=== PATIENT | female | born 2000 | race Caucasian/White ===

== ENCOUNTER 2025-05-09 20:52 | Emergency (ER) | payer OTHER ==
[~2025-05-09] VITALS: Ht 147.3 cm; Wt 55.5 kg
[2025-05-09 21:07] VITALS: BP 112/73; PULSE 82; RESP 16; TEMP 97.9; O2SAT 98
[2025-05-09] MEDS: AMOX TR/POT CLAV 875 MG/125 MG TABLET PO ONE (22:31)
[2025-05-09] MEDS: IBUPROFEN 600 MG TABLET PO ONE (22:32)
[2025-05-09] MEDS ORDERED: AMOX-457 PO (23:37)
[2025-05-09] MEDS ORDERED: IBUP-1493 PO (23:37)
== END 2025-05-10 | disposition home or self-care (01) ==
LOC: EDBD 20:54 → EMS 20:54
DX: S00.03XA Contusion of scalp, initial encounter (principal); S60.311A Abrasion of right thumb, initial encounter; S19.9XXA Unspecified injury of neck, initial encounter; F12.90 Cannabis use, unspecified, uncomplicated; Z88.8 Allergy status to other drugs, medicaments and biological substances; Y04.1XXA Assault by human bite, initial encounter; Y93.89 Activity, other specified; Y92.89 Other specified places as the place of occurrence of the external cause; Y99.0 Civilian activity done for income or pay
CPT/HCPCS: 70450; 72125; 84703; 99284

== ENCOUNTER 2025-05-15 16:12 | Emergency (ER) | payer OTHER ==
[~2025-05-15] VITALS: Ht 147.3 cm; Wt 55.0 kg
[~2025-05-15 16:12] MED LIST: AMOX-457 PO; IBUP-1493 PO
[2025-05-15 16:17] VITALS: BP 99/51; PULSE 73; RESP 18; TEMP 97.7; O2SAT 100
[2025-05-15] MEDS: ACETAMINOPHEN 325 MG TABLET PO ONE (17:00)
[2025-05-15] MEDS: KETOROLAC TROMETHAMINE 30 MG/ML VIAL IM ONE (17:00)
[2025-05-15] MEDS: LIDOCAINE 5% TRANSDERMAL PATCH TD ONE (17:01)
[2025-05-15] MEDS ORDERED: LIDO-57 TP (18:11)
[2025-05-15] MEDS ORDERED: METH-812 PO (18:11)
[2025-05-15] MEDS ORDERED: TRAM50TA5 PO ×3 (18:11→18:25)
== END 2025-05-15 18:25 | disposition home or self-care (01) ==
LOC: EMS 16:12
DX: S20.222A Contusion of left back wall of thorax, initial encounter (principal); F12.90 Cannabis use, unspecified, uncomplicated; Z79.899 Other long term (current) drug therapy; Y08.89XA Assault by other specified means, initial encounter; Y93.89 Activity, other specified; Y92.89 Other specified places as the place of occurrence of the external cause; Y99.8 Other external cause status
CPT/HCPCS: 99284; 96372; J1885